=== PATIENT | female | born 1990 ===

== ENCOUNTER 2017-11-07 07:05 | Emergency (ER) | payer OTHER ==
[2017-11-07 07:31] VITALS: RESP 18; TEMP 97.8
[2017-11-07 07:45] LABS: SQUAMOUS EPITHIAL 1 /hpf (0-5); URINE BILIRUBIN NEGATIVE (NEGATIVE); URINE BLOOD NEGATIVE (NEGATIVE); URINE CLARITY Clear (Clear); URINE COLOR Yellow (YELLOW); URINE GLUCOSE (UA) NORMAL (Normal); URINE LEUKOCYTE ESTERASE NEG Leu/uL (Negative); URINE NITRATE NEGATIVE (NEGATIVE); URINE PROTEIN NEGATIVE (NEGATIVE); URINE UROBILINOGEN NORMAL mg/dL (0.2-1.0)
[2017-11-07 07:47] LABS: HCG,QUALITATIVE URINE NEGATIVE (NEGATIVE)
--- NOTE | 2017-11-07 08:05 | RAD ---
HISTORY: left rib cage pain COMPARISON: No prior. TECHNIQUE: Chest PA and lateral FINDINGS: LUNGS: No active pulmonary disease. PLEURA: No significant pleural effusion identified. No pneumothorax apparent. CARDIOVASCULAR: Normal. OSSEOUS STRUCTURES: Minimal scoliosis VISUALIZED UPPER ABDOMEN: Normal. OTHER FINDINGS: None. IMPRESSION: No active disease. Minimal scoliosis
[2017-11-07] MEDS ORDERED: Lidocaine 5% Patch TD STA (08:52)
[2017-11-07] MEDS ORDERED: Lidocaine 5% Patch TD ONE (09:35)
--- NOTE | 2017-11-07 09:40 | C.PDOC ---
History Of Present Illness 26 year old female presents to the ED for evaluation of pain mostly located in the upper back. 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 Patient denies dizziness, SOB, CP, abdominal pain, nausea, vomit, diarrhea, dysuria, hematuria, weakness, numbness, previous injury, trauma , fall. Time Seen by Provider: 11/07/17 07:21 Chief Complaint (Nursing): Back Pain History Per: Patient History/Exam Limitations: no limitations Onset/Duration Of Symptoms: Days Current Symptoms Are (Timing): Still Present Quality Of Discomfort: "Pain" Associated Symptoms: None Exacerbating Factor(s): Movement Recent travel outside of the [place]: No Additional History Per: Patient Past Medical History Reviewed: Historical Data, Nursing Documentation, Vital Signs Vital Signs: Last Vital Signs Temp 97.8 F 11/07/17 07:28 Pulse 69 11/07/17 09:50 Resp 18 11/07/17 09:50 BP 118/74 11/07/17 09:50 Pulse Ox 100 11/07/17 09:50 - Medical History PMH: No Chronic Diseases Denies: Chronic Kidney Disease Surgical History: Appendectomy - [facility] Procedures LOW CERVICAL (04/04/14) RESECTION OF APPENDIX, PERCUTANEOUS ENDOSCOPIC APPROACH (08/26/15) Family History: States: Unknown Family Hx - Social History Hx Tobacco Use: No Hx Alcohol Use: No Hx Substance Use: No - Immunization History Hx Tetanus Toxoid Vaccination: No Hx Influenza Vaccination: No Hx Pneumococcal Vaccination: No Review Of Systems Constitutional: Negative for: Fever, Chills Cardiovascular: Negative for: Chest Pain, Palpitations Respiratory: Negative for: Cough, Shortness of Breath Gastrointestinal: Negative for: Nausea, Vomiting, Abdominal Pain, Diarrhea Genitourinary: Negative for: Dysuria, Hematuria Musculoskeletal: Positive for: Back Pain (left upper) Skin: Negative for: Rash Neurological: Negative for: Weakness, Numbness, Headache Physical Exam - Physical Exam Appears: Non-toxic, No Acute Distress Skin: Normal Color, Warm, Dry Head: Atraumatic, Normacephalic Eye(s): bilateral: Normal Inspection Nose: No Discharge, No Epistaxis Oral Mucosa: Moist Neck: Normal ROM, Supple Chest: Symmetrical Cardiovascular: Rhythm Regular, No Murmur Respiratory: Normal Breath Sounds, No Rales, No Rhonchi, No Wheezing Gastrointestinal/Abdominal: Soft, No Tenderness, No Guarding, No Rebound Back: No CVA Tenderness, Other (Left infrascapular tenderness) Extremity: Normal ROM, No Pedal Edema, No Calf Tenderness, No Deformity, No Swelling Neurological/Psych: Oriented x3, Normal Speech, Normal Cognition Gait: Steady ED Course And Treatment O2 Sat by Pulse Oximetry: 98 (On RA) Pulse Ox Interpretation: Normal - Radiology CXR: Viewed By Me, Read By Radiologist CXR Interpretation: Yes: Other (No active disease. Minimal scoliosis). No: No Acute Disease, Infiltrates Progress Note: Plan: -CXR. -Lidoderm 1 ea TD. -Motrin 600 mg PO. -UA. Patient was stable enough for d/c and instructed to follow up with PMD or return to the ED if symptoms returned or worsened. Disposition - Disposition Disposition: HOME/ ROUTINE Disposition Time: 09:40 Condition: STABLE Additional Instructions: Follow up with PMD within 1-2 days. Return to ED if feel worse. Prescriptions: Lidocaine 5% [Lidoderm] 1 patch TP DAILY #30 patch Ibuprofen [Motrin Tab] 600 mg PO Q8 #30 tab Instructions: Musculoskeletal Pain (ED) Forms: [employer] (Latvian) - Clinical Impression Clinical Impression: Musculoskeletal pain - PA / TEACHING YOUNG / Resident Statement MD/DO has reviewed & agrees with the documentation as recorded. - Scribe Statement The provider has reviewed the documentation as recorded by the Scribe Mauricio Whitman All medical record entries made by the Scribe were at my direction and personally dictated by me. I have reviewed the chart and agree that the record accurately reflects my personal performance of the history, physical exam, medical decision making, and the department course for this patient. I have also personally directed, reviewed, and agree with the discharge instructions and disposition.
[2017-11-07 09:51] VITALS: BP 118/74; PULSE 69
[2017-11-07 11:34] VITALS: O2SAT 98
== END 2017-11-07 09:51 | disposition home or self-care (01) ==
LOC: C.ER 07:05
DX: M79.1 Myalgia (principal)

== ENCOUNTER 2018-08-22 16:58 | Emergency (ER) | payer OTHER ==
[2018-08-22 17:01] VITALS: BMI 26.6
[2018-08-22 17:07] VITALS: BP 126/77; PULSE 82; RESP 18; TEMP 98.4; O2SAT 99
--- NOTE | 2018-08-22 17:41 | RAD ---
Date of service: 08/22/2018 PROCEDURE: Right Ankle Radiographs. HISTORY: twisted ankle COMPARISON: None available. FINDINGS: BONES: Bone alignment and mineralization are normal. There is no acute displaced fracture or bone destruction. JOINTS: Normal. Ankle mortise maintained. Talar dome intact SOFT TISSUES: There is mild lateral soft tissue swelling. OTHER FINDINGS: None. IMPRESSION: No acute fracture or dislocation. Mild lateral soft tissue swelling.
--- NOTE | 2018-08-22 17:41 | C.PDOC ---
History Of Present Illness Patient c/o right ankle pain and swelling started today after she twisted her ankle while walking. Chief Complaint (Nursing): Lower Extremity Problem/Injury History Per: Patient History/Exam Limitations: no limitations Onset/Duration Of Symptoms: Days (1) Severity: Moderate Pain Scale Rating Of: 5 Additional History Per: Patient - Ankle/Foot Description Of Injury: Twisted Currently Unable To: Bear Weight Past Medical History Reviewed: Historical Data, Nursing Documentation, Vital Signs Vital Signs: Last Vital Signs Temp 98.4 F 08/22/18 17:01 Pulse 82 08/22/18 17:01 Resp 18 08/22/18 17:01 BP 126/77 08/22/18 17:01 Pulse Ox 99 08/22/18 17:01 - Medical History PMH: No Chronic Diseases Denies: Chronic Kidney Disease Surgical History: Appendectomy - [facility] Procedures LOW CERVICAL (04/04/14) RESECTION OF APPENDIX, PERCUTANEOUS ENDOSCOPIC APPROACH (08/26/15) Family History: States: Unknown Family Hx - Social History Hx Tobacco Use: No Hx Alcohol Use: No Hx Substance Use: No - Immunization History Hx Tetanus Toxoid Vaccination: No Hx Influenza Vaccination: No Hx Pneumococcal Vaccination: No Review Of Systems Except As Marked, All Systems Reviewed And Found Negative. Physical Exam - Physical Exam Appears: Well, Non-toxic, No Acute Distress Skin: Normal Color Head: Atraumatic, Normacephalic Eye(s): bilateral: Normal Inspection Extremity: Tenderness (right lateral malleolus), Swelling (right lateral malleolus) Neurological/Psych: Oriented x3, Normal Speech, Normal Cognition, Normal Motor, Normal Sensation ED Course And Treatment O2 Sat by Pulse Oximetry: 99 - Other Rad Right ankle xray X-Ray: Viewed By Me, Read By Radiologist Interpretation: Accession No. : [id number]. Patient Name / ID : KATHLEEN RAISSA / [id number]. Exam Date : 08/22/2018 17:17:45 ( Approved ). Study Comment : Sex / Age : F / 27Y. Creator : Soha Álvarez MD. Dictator : Soha Álvarez MD. Icing And Glaze Maker : Wire Roller : Soha Álvarez MD. Approver2 : Report Date : 08/22/2018 17:38:10. My Comment : . This report is currently processing and HAS NOT BEEN OFFICIALLY SIGNED BY THE PHYSICIAN - ESTIMATED TIME OF APPROVAL IS 08/22/2018 17:43. Date of service: 08/22/2018. PROCEDURE: Right Ankle Radiographs. HISTORY: twisted ankle. COMPARISON: None available. FINDINGS: BONES: Bone alignment and mineralization are normal. There is no acute displaced fracture or bone destruction. JOINTS: Normal. Ankle mortise maintained. Talar dome intact. SOFT TISSUES: There is mild lateral soft tissue swelling. OTHER FINDINGS: None. IMPRESSION: No acute fracture or dislocation. Mild lateral soft tissue swelling. Progress Note: Patient was given ice pack. Aircast was applied by CP and checked by me, crutches given. Patient was referrdto Orthopedist for follow up. Disposition - Disposition Referrals: Raza Casiano III, MD [Staff Provider] - Disposition: HOME/ ROUTINE Disposition Time: 17:39 Condition: STABLE Additional Instructions: Follow up with your PMD and Orthopedist within 1-2 days. Return to ED if feel worse. Prescriptions: Ibuprofen [Motrin Tab] 600 mg PO Q8 #30 tab Instructions: Ankle Sprain (DC) Forms: [employer] (Albanian) Print Language: IRISH - Clinical Impression Clinical Impression: Ankle sprain
== END 2018-08-22 18:10 | disposition home or self-care (01) ==
LOC: C.ER 16:58
DX: S93.401A Sprain of unspecified ligament of right ankle, initial encounter (principal); X50.9XXA Other and unspecified overexertion or strenuous movements or postures, initial encounter; Y93.01 Activity, walking, marching and hiking

== ENCOUNTER 2019-02-11 14:25 | Emergency (ER) | payer SELFPAY ==
[2019-02-11 14:25] VITALS: BMI 26.6
[2019-02-11 14:33] VITALS: BP 132/72; PULSE 85; RESP 18; TEMP 98.4; O2SAT 100
--- NOTE | 2019-02-11 14:58 | C.PDOC ---
History Of Present Illness Patient is a 28 year old female who presents to the ED c/o 4 days of digitally and positionally reproducible pain of the right lateral chest. 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 She denies any SOB, CP, trauma, or injury. Time Seen by Provider: 02/11/19 14:48 Chief Complaint (Nursing): Abdominal Pain History Per: Patient History/Exam Limitations: no limitations Onset/Duration Of Symptoms: Days (4) Current Symptoms Are (Timing): Still Present Location Of Pain/Discomfort: Other (right lateral chest ) Quality Of Discomfort: "Pain" Associated Symptoms: denies: Chest Pain Additional History Per: Patient Past Medical History Reviewed: Historical Data, Nursing Documentation, Vital Signs Vital Signs: Last Vital Signs Temp 98.4 F 02/11/19 14:30 Pulse 85 02/11/19 14:30 Resp 18 02/11/19 14:30 BP 132/72 02/11/19 14:30 Pulse Ox 100 02/11/19 14:30 - Medical History PMH: No Chronic Diseases Denies: Chronic Kidney Disease Surgical History: Appendectomy - [facility] Procedures LOW CERVICAL (04/04/14) RESECTION OF APPENDIX, PERCUTANEOUS ENDOSCOPIC APPROACH (08/26/15) Family History: States: Unknown Family Hx - Social History Hx Tobacco Use: No Hx Alcohol Use: No Hx Substance Use: No - Immunization History Hx Tetanus Toxoid Vaccination: No Hx Influenza Vaccination: No Hx Pneumococcal Vaccination: No Physical Exam - Physical Exam Appears: Non-toxic, No Acute Distress, Other (young healthy female) Skin: Normal Color, Warm, Dry Head: Atraumatic, Normacephalic Oral Mucosa: Moist Neck: Normal ROM, Supple Chest: Tenderness (digitally reproducible pain along mid axillary line in T4/T5 area of intecostal spaces) Cardiovascular: Rhythm Regular, No Murmur Respiratory: Normal Breath Sounds, No Rales, No Rhonchi, No Wheezing Gastrointestinal/Abdominal: Soft, No Tenderness Extremity: Normal ROM Neurological/Psych: Oriented x3, Normal Speech, Normal Cognition ED Course And Treatment O2 Sat by Pulse Oximetry: 100 (on RA) Pulse Ox Interpretation: Normal Medical Decision Making Medical Decision Making: Plan: Motrin 600mg PO digitally and positionally reproducible pain R lateral chest wall mid- axillaryline, intercostal spaces bra strap line no trauma lifts babies costochondritis ice pack/nsaids given Disposition Doctor Will See Patient In The: Office Counseled Patient/Family Regarding: Studies Performed, Diagnosis - Disposition Referrals: [facility] [Outside] [facility] [facility] [place] [Outside] [facility] [Outside] [facility] [Outside] Disposition: HOME/ ROUTINE Disposition Time: 14:57 Condition: GOOD Additional Instructions: [place] 1/2 hora por hora, nada caliente ibuprofeno 400-600 mg cada 6 horas leelee necessario jamey levanta cosas pesadas por 1 semana los lorraine van a durar 1-2 semanas mas Instructions: Costochondritis Forms: [employer] (Greek) Print Language: KYRGYZ - Clinical Impression Clinical Impression: Chest wall discomfort - Scribe Statement The provider has reviewed the documentation as recorded by the Scribe Jennifer Thorpe All medical record entries made by the Scribe were at my direction and personally dictated by me. I have reviewed the chart and agree that the record accurately reflects my personal performance of the history, physical exam, medical decision making, and the department course for this patient. I have also personally directed, reviewed, and agree with the discharge instructions and disposition.
== END 2019-02-11 14:55 | disposition home or self-care (01) ==
LOC: C.ER 14:25
DX: R07.89 Other chest pain (principal)